=== PATIENT | male | born 1965 | race Two or more races ===

== ENCOUNTER 2022-03-11 11:25 | Inpatient (IN) ==
[2022-03-11] MEDS ORDERED: ZOFRAN INJ 4 MG VIAL ONE (15:21)
[2022-03-11] MEDS ORDERED: VERSED ONE (15:21)
[2022-03-11] MEDS ORDERED: BRIDION ONE (15:21)
[2022-03-11] MEDS ORDERED: OFIRMEV IV 1000 MG VIAL 1,000 MG/100 ML VIAL IV ONE (15:21)
[2022-03-11] MEDS ORDERED: DIPRIVAN VIAL 20 ML ONE (15:21)
[2022-03-11] MEDS ORDERED: FENTANYL VIAL INJ 100 mcg ONE (15:21)
[2022-03-11] MEDS ORDERED: TORADOL 30 MG VIAL ONE (15:21)
[2022-03-11] MEDS ORDERED: ZEMURON 100 MG VIAL ONE (15:21)
[2022-03-11] MEDS ORDERED: PEPCID 20 MG VIAL ONE (15:21)
[2022-03-11] MEDS ORDERED: MARCAINE 0.25% INJ ONE (15:24)
[2022-03-11 15:26] VITALS: BMI 31.8
[2022-03-11] MEDS ORDERED: NS 1,000 ML IV 1,000 ML ONE (15:27)
--- NOTE | 2022-03-11 15:28 | DR.H&P ---
H&P History & Physical for Day of: H&P Date: 03/11/22 Chief Complaint Chief Complaint: 56 yo male,previously healthy , who presented to ER in [place], [place] . C/O several hours of RLQ pain. CT consistent with acute appendicitis. History of Present Illness History of Present Illness: see above Past Surgical History Surgical History: Unknown Social History Does patient currently use any type of tobacco product: No Have you used tobacco products in the last 12 months: No Type of Tobacco Use: None Alcohol Use: None Medications Home Medications: CONTINUE taking the following medications NK 03/11/22 [History] Labs Labs: Labs from [facility] reviewed Review of Systems Constitutional: See HPI Eyes: No Symptoms Reported ENT: No Symptoms Reported Respiratory: No Symptoms Reported Cardiovascular: No Symptoms Reported Gastrointestinal: No Symptoms Reported Genitourinary: No Symptoms Reported Musculoskeletal: No Symptoms Reported Skin: No Symptoms Reported Neurological: No Symptoms Reported Oriented: Normal Eyes: Normal Ear: Normal Nose: Normal Throat: Normal Respiratory: Clear Throughout Cardiovascular: Normal : Normal Auscultation: Bowel Sounds: Normal Tenderness: RLQ and Rebound Skin: Normal Musculoskeletal: Normal Psychiatric: Normal Mood Description: Calm Affect: Normal Speech Pattern: Clear Assessment/Plan (1) Appendicitis, acute: Status: Acute Plan: To OR for laparoscopic appendectomy. risks and benefits described with tunnel man, and he agrees to proceed Review H&P Reviewed: Yes Patient was examined?: Yes
[2022-03-11] MEDS ORDERED: ANCEF VIAL 1 GRAM ONE (15:38)
[2022-03-11] MEDS ORDERED: NS 100 ML IV 100 ML ONE (15:39)
[2022-03-11] MEDS ORDERED: SUPRANE ONE (15:50)
[2022-03-11] MEDS ORDERED: PERCOCET TAB 5/325 MG PO PRN (16:27)
--- NOTE | 2022-03-11 16:27 | OR.IMMED ---
IMMEDIATE POST-OP NOTE Immediate Post-Op Note Pre-Op Diagnosis: acute appendicitis Post-Op Diagnosis: same Procedure: laparoscopic appendectomy Description of Procedure: see operative summary Surgeon/Micro Lab Analyst: Irasema Findings: as above Specimens Removed: appendix Estimated Blood Loss: minimal Drains: NONE Complications: none Progress Notes: To floor, begin diet, po antibiotics, probably discharge tomorrow. Final Diagnosis: acute appendicitis
[2022-03-11] MEDS ORDERED: BARHEMSYS INJ IVP PRN (16:36)
[2022-03-11] MEDS ORDERED: ZOFRAN INJ 4 MG VIAL IVP PRN (16:36)
[2022-03-11] MEDS ORDERED: REGLAN INJ 10 MG VIAL IVP PRN (16:36)
[2022-03-11] MEDS ORDERED: BENADRYL INJ 50 MG VIAL IVP PRN (16:36)
[2022-03-11] MEDS ORDERED: DILAUDID INJ IVP PRN (16:36)
[2022-03-11] MEDS ORDERED: PHENERGAN INJ 25 MG IM PRN (16:36)
[2022-03-11] MEDS: LR 1,000 ML IV 1,000 ML IV SCH (17:35)
[2022-03-11] MEDS: CIPRO TAB 500 MG PO SCH (21:04)
--- NOTE | 2022-03-12 01:13 | DR.OPNOTE ---
OP NOTE Pre-Op Diagnosis: acute appendicitis Post-Op Diagnosis: acute appendicitis Procedure Date Date Of Procedure: 03/11/22 Procedure: PROCEDURE: LAPAROSCOPIC APPENDECTOMY NARRATIVE: Patietn taken to operative suite and placed in the supine position a nd general endotracheal anesthesia induced . The entire abdomen was prepped and draped in sterile fashion. Time out for the procedure obtained. A 5 mm incision was made lateral to the left rectus sheath online with a 15 knife blade and a 5 mm Optical trocar used to enter the abdominal cavity. Under direct vision a 5 mm trocar was placed above the pubic tubercles in the midline and a 12 mm trocar placed in the left lower quadrant through a 1 cm incision . Appendix was acutely inflamed with no evidence of perforation . Small bowel adhered over the appendix. This was taken down bluntly exposing the appendix. The base of the appendix divided with one fire of the laparoscopic STEPHANIE stapler and the mesentery divided with one fire of the laparoscopic stapler. The appendix placing a specimen bag and brought out through the left lower quadrant trocar site . The abdomen . was irrigated and suctioned free. All the incisions closed with interrupted subcutaneous 3-0 Vicryl sutures . The skin closed with 1/2 inch steri stripes A total of 10 cc's of 0. 5% Marcaine was distributed between the three laparoscopic incisions. Patient taken to the recovery room in good condition after extubation. Type of Anesthesia: General Anesthetic w/ETT Findings: acute appendicitis Specimen/Pathology: appendix Type of Fluids Used:: Lactated Ringers EBL: minimal Drains/Tubes Placed: None Complications:: none Needle/Sponge Count:: correct Disposition/Condition: Pt. tolerated procedure without difficulty. Extubated in the OR and taken to PACU in stable condition.
[2022-03-12] MEDS: LR 1,000 ML IV 1,000 ML IV SCH (05:55)
[2022-03-12] MEDS: CIPRO TAB 500 MG PO SCH (08:50)
[2022-03-12] MEDS ORDERED: LOVENOX INJ 40 MG SYR SC SCH (09:00)
[2022-03-12 12:56] VITALS: BP 108/63
[2022-03-12] MEDS ORDERED: LOVENOX INJ 40 MG SYR SC ONE (14:01)
--- NOTE | 2022-03-12 14:52 | W.DIS.FURT ---
Summary of Discharge Discharge Summary of Date Date of Exam: 03/12/22 Admission Date Date of Admission: 03/11/22 Admission Diagnosis Hospital Course: 56 year old male who presented with acute onset of right lower quadrant pain and tenderness. CT scan consistent with acute appendicitis. He underwent uncomplicated laparoscopic appendectomy and is doing well. To be discharged home on Cipro 500 mg one by mouth BID, and Percocet 5 mg tablets every 6 hours PRN pain, # 20.F/U Dr Villalpando on 03/17/2022. Vital Signs: Vital Signs (72 hours) 03/11/22 15:43 03/11/22 15:17 03/11/22 15:50 Temperature 97.6 F Pulse Rate 91 H Pulse Rate [Left Radial] Respiratory Rate 20 16 Blood Pressure 134/81 Blood Pressure [Left Arm] O2 Sat by Pulse Oximetry 98 Oxygen Delivery Method Room Air Room Air 03/11/22 16:32 03/11/22 16:37 03/11/22 16:42 Temperature 98.3 F Pulse Rate 90 88 83 Pulse Rate [Left Radial] Respiratory Rate 18 18 18 Blood Pressure 125/73 130/80 128/79 Blood Pressure [Left Arm] O2 Sat by Pulse Oximetry 97 99 98 Oxygen Delivery Method Aerosol Face Tent Aerosol Face Tent Aerosol Face Tent 03/11/22 16:47 03/11/22 16:52 03/11/22 16:57 Temperature Pulse Rate 83 84 81 Pulse Rate [Left Radial] Respiratory Rate 18 18 18 Blood Pressure 127/76 130/75 123/69 Blood Pressure [Left Arm] O2 Sat by Pulse Oximetry 96 93 L 97 Oxygen Delivery Method Nasal Cannula Nasal Cannula Nasal Cannula 03/11/22 17:02 03/11/22 16:20 03/11/22 14:40 Temperature 98.8 F Pulse Rate 84 Pulse Rate [Left Radial] 84 Respiratory Rate 20 16 20 Blood Pressure 127/74 Blood Pressure [Left Arm] 120/62 O2 Sat by Pulse Oximetry 96 96 Oxygen Delivery Method Nasal Cannula Room Air 03/11/22 17:15 03/11/22 17:30 03/11/22 17:45 Temperature 98.7 F 98.7 F 98.7 F Pulse Rate Pulse Rate [Left Radial] 83 84 86 Respiratory Rate 18 18 18 Blood Pressure Blood Pressure [Left Arm] 118/67 116/70 117/70 O2 Sat by Pulse Oximetry 97 98 98 Oxygen Delivery Method Room Air Room Air Room Air 03/11/22 18:00 03/11/22 18:15 03/11/22 19:00 Temperature 98.7 F 98.4 F Pulse Rate Pulse Rate [Left Radial] 80 79 Respiratory Rate 20 18 Blood Pressure Blood Pressure [Left Arm] 116/65 110/74 O2 Sat by Pulse Oximetry 98 99 Oxygen Delivery Method Room Air Room Air Room Air 03/12/22 00:00 03/11/22 19:15 03/11/22 20:15 Temperature 99.6 F Pulse Rate Pulse Rate [Left Radial] 79 85 79 Respiratory Rate 18 20 18 Blood Pressure Blood Pressure [Left Arm] 108/56 122/62 115/62 O2 Sat by Pulse Oximetry 97 100 96 Oxygen Delivery Method Room Air Room Air Room Air 03/11/22 21:15 03/11/22 22:15 03/12/22 07:00 Temperature 98.5 F Pulse Rate Pulse Rate [Left Radial] 74 76 Respiratory Rate 18 18 Blood Pressure Blood Pressure [Left Arm] 107/67 107/56 O2 Sat by Pulse Oximetry 98 96 Oxygen Delivery Method Room Air Room Air Room Air 03/12/22 08:00 03/12/22 08:54 03/12/22 09:54 Temperature 99.1 F Pulse Rate Pulse Rate [Left Radial] 87 Respiratory Rate 18 20 22 Blood Pressure Blood Pressure [Left Arm] 113/62 O2 Sat by Pulse Oximetry 95 Oxygen Delivery Method 03/12/22 12:00 Temperature 98.6 F Pulse Rate Pulse Rate [Left Radial] 79 Respiratory Rate 18 Blood Pressure Blood Pressure [Left Arm] 108/63 O2 Sat by Pulse Oximetry 96 Oxygen Delivery Method Labs: Laboratory Last Values Tissue Pathology To follow 03/11/22 16:16 Reason For Visit: ACUTE APPENDICITIS Discharge Date Discharge Date: 03/12/22 Discharge Diagnosis All Active Problems (Updated 03/11/22 @ 15:27 by Tyson Villalpando) Appendicitis, acute (Acute) Plan of Treatment: Continue with present treatment and follow up plan. Pt is to keep follow up appointment as instructed and take medications as ordered. Discharge Medications Discharge Medications: No Known Drug Allergies [NKDA] Allergy (Verified 03/11/22 16:07) New Prescriptions ciprofloxacin HCl 500 mg tablet (Cipro) 500 mg PO BID #10 tabs 03/12/22 [Rx] oxycodone-acetaminophen 5 mg-325 mg tablet (Percocet) 1 tab PO Q6H PRN #20 tabs 03/12/22 [Rx] Discharge Disposition Assessment: See hospital course above Discharge Plan Discharge Plan Hospital Course: 56 year old male who presented with acute onset of right lower quadrant pain and tenderness. CT scan consistent with acute appendicitis. He underwent uncomplicated laparoscopic appendectomy and is doing well. To be discharged home on Cipro 500 mg one by mouth BID, and Percocet 5 mg tablets every 6 hours PRN pain, # 20.F/U Dr Villalpando on 03/17/2022. Patient Disposition: 01 HOME, SELF-CARE Condition: Stable Health Concerns: Post Hospitalization: new medications and changes needed to prevent readmission or further decline. Pt educated and given instructions on all concerns. Care Plan Goals: as above Plan of Treatment: Continue with present treatment and follow up plan. Pt is to keep follow up appointment as instructed and take medications as ordered. Assessment: See hospital course above Prescriptions: New ciprofloxacin HCl [Cipro] 500 mg tablet 500 mg PO BID Qty: 10 0RF oxycodone-acetaminophen [Percocet] 5-325 mg tablet 1 tab PO Q6H MDD 4 PRNQty: 20 0RF Follow ups/Referrals Follow ups/Referrals: Tyson Villalpando [Primary Care Provider] - 1 WEEK Instructions Instructions: Laparoscopic Appendectomy, Adult, Care After, [id number] Stand Alone Forms: Excuse From Work or School, Precautions for COVID19, [facility], Patient Portal, Social Distancing
== END 2022-03-12 15:30 | disposition home or self-care (01) | DRG 343 ==
LOC: MED/SURG 15:10
PROVIDERS: ADMIT Surgery; ATTEND Surgery
PROC: APPYLAP (ICD-10-PCS; 2022-03-11 15:15)
DX: R10.31 Right lower quadrant pain; K35.890 Other acute appendicitis without perforation or gangrene